=== PATIENT | male | born 1995 | race Caucasian/White ===

== ENCOUNTER 2018-04-07 16:17 | Emergency (ER) | payer OTHER, MEDICAID ==
[~2018-04-07] VITALS: Ht 180.3 cm; Wt 60.0 kg
[2018-04-07] MEDS ORDERED: SODIUM CHLORIDE 0.9% 1,000 ML IV ONE (16:36)
[2018-04-07] MEDS ORDERED: LORAZEPAM 2MG/ML CPJ IV ONE (16:45)
[2018-04-07 19:30] VITALS: BP 118/78
[2018-04-07 20:04] LABS: *AMPHETAMINES SCREEN URINE PRESUMTIVE POSITIVE (NEGATIVE); *BARBITURATES SCREEN URINE NEGATIVE (NEGATIVE); *BENZODIAZEPINES SCREEN URINE NEGATIVE (NEGATIVE); *COCAINE SCREEN URINE NEGATIVE (NEGATIVE); METHADONE URINE SCREEN NEGATIVE (NEGATIVE); OPIATES URINE SCREEN NEGATIVE (NEGATIVE)
[2018-04-07 20:05] LABS: CANNABINOID URINE SCREEN NEGATIVE (NEGATIVE); PHENCYCLIDINE URINE SCREEN NEGATIVE (NEGATIVE)
== END 2018-04-07 20:39 | disposition home or self-care (01) ==
LOC: ER 17:17
DX: R00.0 Tachycardia, unspecified (principal); F15.10 Other stimulant abuse, uncomplicated; F20.9 Schizophrenia, unspecified; R41.82 Altered mental status, unspecified
CPT/HCPCS: 80305; 96361; 96374; 99285; J2060; J7030; Z7610